=== PATIENT | female | born 1980 | race Two or more races ===

== ENCOUNTER 2022-09-10 09:18 | Emergency (ER) | payer OTHER ==
[~2022-09-10] VITALS: Ht 162.6 cm; Wt 74.8 kg
[2022-09-10] MEDS ORDERED: TUSSIN DM SYRU118 ML PO (10:17)
[2022-09-10] MEDS ORDERED: CLARITIN-D 121 EACH PO (10:17)
[2022-09-10] MEDS ORDERED: ZITHROMAX TRI-500 MG PO (10:17)
== END 2022-09-10 10:24 | disposition home or self-care (01) ==
LOC: ER 09:18
DX: J06.9 Acute upper respiratory infection, unspecified (principal); Z88.6 Allergy status to analgesic agent; Z88.8 Allergy status to other drugs, medicaments and biological substances